=== PATIENT | female | born 1950 | race Caucasian/White ===

== ENCOUNTER → 2016-12-15 | Outpatient (CLI) | payer BC, OTHER ==
--- NOTE | 2016-12-15 11:49 | HKNOTE ---
DATE OF SERVICE: 12/15/2016 INTERVAL HISTORY: The patient presents today for a followup evaluation on her bilateral knees. We last saw her over 1 year ago, at which point she had Monovisc injections. She has been dealing with some dental complications and infections and has not been back in for a repeat evaluation. She is here today for a repeat Monovisc injection. The patient plans to come in for a formal evaluation and reevaluation of her knees. We plan to obtain some x-rays at that time. She deferred x-rays today and wanted to proceed with bilateral Monovisc injections. PHYSICAL EXAMINATION: Today, she is alert and oriented x4, and in no acute distress. Exam of bilateral knees demonstrate 2+ patellofemoral crepitus. She does have tenderness along the medial and lateral patellar facets. Her range of motion is adequate. There is no erythema or warmth. There are no signs of infection. The compartments are soft. She is neurovascularly intact distally. ASSESSMENT: Bilateral knee osteoarthritis. PLAN: The patient underwent bilateral Monovisc injections successfully today. Postinjection protocol was instructed to the patient at length. She was advised to take anti-inflammatories as needed. She will follow up for a formal evaluation with Dr. Hopkins, at which point we will obtain new x-rays. She is to call the office in the meantime if she has any concerns. PROCEDURE: The procedure was fully explained to the patient and inform consent was obtain prior to the start of the procedure. The area was prepped and draped in sterile fashion using betadine. The skin was anesthetized using ethyl- chloride and 4cc of Monovisc was injected into bilateral knees. A sterile bandage was applied. The patient tolerated the procedure well. All questions and concerns were addressed at the time of the procedure. Dictated By: STEVEN FORRESTER/SIDNEY Conf#: [id number] DID#: [id number]
== END | disposition home or self-care (01) ==
LOC: HKI 10:22
PROVIDERS: ATTEND Orthopaedic Surgery
DX: M17.0 Bilateral primary osteoarthritis of knee (principal)
CPT/HCPCS: 20610; G0463; J7327